=== PATIENT | female | born 1970 | race Asian ===

== ENCOUNTER 2016-08-04 10:52 | Outpatient (CLI) | payer BC ==
[2016-08-04 11:32] LABS: PLATELET COUNT 294 K/uL (152-353)
[2016-08-04 13:19] LABS: POTASSIUM 4.2 mmol/L (3.6-5.2); SODIUM 141 mmol/L (136-145)
== END 2016-08-04 19:14 | disposition home or self-care (01) ==
LOC: LABW 10:52
PROVIDERS: Internal Medicine
DX: I10 Essential (primary) hypertension (principal); D64.89 Other specified anemias; E11.9 Type 2 diabetes mellitus without complications; E78.00 Pure hypercholesterolemia, unspecified
CPT/HCPCS: 36415; 80053; 80061; 81000; 82043; 82570; 83036; 84443; 85027

== ENCOUNTER 2017-07-19 08:07 | Outpatient (CLI) | payer BC | END 2017-07-19 21:44 | disposition home or self-care (01) | LOC: LABW 08:07 | PROVIDERS: Internal Medicine | DX: E11.9 Type 2 diabetes mellitus without complications (principal) | CPT/HCPCS: 36415; 80053; 80061; 83036 ==

== ENCOUNTER 2017-10-21 09:08 | Outpatient (CLI) | payer BC | END 2017-10-21 23:54 | disposition home or self-care (01) | LOC: LABW 09:08 | DX: B35.1 Tinea unguium (principal) | CPT/HCPCS: 36415; 84450; 84460 ==

== ENCOUNTER 2017-11-01 08:02 | Outpatient (CLI) | payer BC ==
[2017-11-01 08:27] LABS: PLATELET COUNT 302 K/uL (152-353)
[2017-11-01 08:44] LABS: POTASSIUM 3.9 mmol/L (3.6-5.2)
== END 2017-11-01 19:43 | disposition home or self-care (01) ==
LOC: LABW 08:02
PROVIDERS: Physician Assistant
DX: D64.89 Other specified anemias (principal); E11.9 Type 2 diabetes mellitus without complications; E78.00 Pure hypercholesterolemia, unspecified
CPT/HCPCS: 36415; 80053; 82306; 83036; 84439; 84443; 85027

== ENCOUNTER 2018-04-07 08:32 | Outpatient (CLI) | payer BC ==
[2018-04-07 09:06] LABS: PLATELET COUNT 316 K/uL (152-353)
[2018-04-07 09:46] LABS: POTASSIUM 3.6 mmol/L (3.6-5.2)
== END 2018-04-07 23:00 | disposition home or self-care (01) ==
LOC: LABW 08:32
PROVIDERS: Internal Medicine
DX: E11.9 Type 2 diabetes mellitus without complications (principal)
CPT/HCPCS: 36415; 80053; 80061; 81000; 82043; 82570; 83036; 84443; 85027

== ENCOUNTER 2018-08-08 08:21 | Outpatient (CLI) | payer BC ==
[2018-08-08 08:41] LABS: PLATELET COUNT 303 K/uL (152-353)
[2018-08-08 09:08] LABS: POTASSIUM 3.6 mmol/L (3.6-5.2)
== END 2018-08-08 20:45 | disposition home or self-care (01) ==
LOC: LABW 08:21
PROVIDERS: Internal Medicine
DX: E11.9 Type 2 diabetes mellitus without complications (principal)
CPT/HCPCS: 36415; 80053; 80061; 81000; 82043; 82570; 83036; 84443; 85027

== ENCOUNTER 2020-10-30 16:33 | Outpatient (CLI) | payer BC | END 2020-10-30 19:21 | disposition home or self-care (01) | LOC: RAD 16:33 | PROVIDERS: ATTEND Internal Medicine | DX: M25.572 Pain in left ankle and joints of left foot (principal); M79.672 Pain in left foot ==

== ENCOUNTER 2021-01-01 15:06 | Outpatient (CLI) | payer BC | END 2021-01-01 20:44 | disposition home or self-care (01) | LOC: MAMMO 15:06 | PROVIDERS: ATTEND Internal Medicine | DX: R09.89 Other specified symptoms and signs involving the circulatory and respiratory systems (principal); Z12.31 Encounter for screening mammogram for malignant neoplasm of breast ==

== ENCOUNTER → 2021-01-09 | Outpatient (CLI) | payer BC | LOC: US 14:30 | PROVIDERS: ATTEND Internal Medicine | DX: R92.8 Other abnormal and inconclusive findings on diagnostic imaging of breast (principal) ==

== ENCOUNTER 2022-02-04 08:22 | Outpatient (CLI) | payer BC | END 2022-02-04 19:29 | disposition home or self-care (01) | LOC: MAMMO 08:22 | PROVIDERS: ATTEND Internal Medicine | DX: Z12.31 Encounter for screening mammogram for malignant neoplasm of breast (principal) ==